=== PATIENT | male | born 1940 | race Caucasian/White ===

== ENCOUNTER 2017-01-12 19:57 | Inpatient (IN) | payer MEDICARE, OTHER ==
[~2017-01-12 19:57] MED LIST: FISH OIL1 CAP; GLUCOSAMINE/CHO1 T; MULTIVITAMIN1 TAB; PRINZIDE 10/12.1 TAB; ZYRTEC1 MG/ML
[2017-01-12] MEDS ORDERED: ASPIRIN EC81 MG PO (20:43)
[2017-01-12] MEDS ORDERED: LASIX20 M1 PO (20:44)
[2017-01-12] MEDS ORDERED: LANTUS SOL100 UNIT/1 SC (20:45)
[2017-01-12] MEDS ORDERED: LOSARTAN-HCTZ1 EAC5 PO (20:47)
[2017-01-12] MEDS ORDERED: NOVOLOG FL100 UNIT/2 (20:48)
[2017-01-12] MEDS ORDERED: SINGULAIR10 M1 PO (20:49)
[2017-01-12] MEDS ORDERED: POTASSIUM CHLO10 ME2 PO (20:49)
[2017-01-12] MEDS ORDERED: GLUCOPHAGE1000 M1 PO (20:49)
[2017-01-12] MEDS ORDERED: PROBIOTIC1 EA10 (20:50)
[2017-01-12] MEDS ORDERED: MULTI-DAY VITA1 EAC1 PO (20:52)
[2017-01-12] MEDS ORDERED: PROBIOTIC1 EA10 PO (20:53)
[2017-01-12] MEDS ORDERED: CITRUCEL POWDE850 GM PO (20:56)
[2017-01-12 23:50] LABS: BASO % 0.3 % (0-2); EOS % 5.3 % (0-7); EOSINOPHIL ABSOLUTE COUNT 0.5 tho/cmm (0.0-0.7); HCT-HEMATOCRIT 36.6 % (36.0-53.5); HGB-HEMOGLOBIN 12.4 gm/dl (13.5-17.0); IMMATURE GRANULOCYTES ABSOLUTE 0.05 tho/cmm (0-0.03); IMMATURE GRANULOCYTES PERCENT 0.5 % (0-0.3); LYMPH % 33.2 % (20-45); LYMPH ABSOLUTE COUNT 3.1 tho/cmm (0.8-4.5); MCH (MEAN CORPUSCULAR HGB) 29.8 pg (28.0-32.0); MCHC MEAN CORPUSCULAR HGB CONC 33.9 % (32.0-36.0); MEAN PLATELET VOLUME 9.2 cmc (9.4-12.4); MONO % 6.5 % (0-12); MONOCYTE ABSOLUTE COUNT 0.6 tho/cmm (0.0-1.2); NEUTROPHIL ABSOLUTE COUNT 5.1 tho/cmm (1.6-8.0); NEUTROPHIL-AUTOMATED 5.1 tho/cmm (1.6-8.0); NEUTROPHILS % 54.2 % (40-80); PLATELET COUNT 273 tho/cmm (150-450); RED BLOOD COUNT 4.16 mil/cmm (4.40-5.70); RED CELL DISTRIBUTION WIDTH 12.6 % (12.4-16.4); WHITE BLOOD COUNT 9.4 tho/cmm (4.0-10.0)
[2017-01-13 00:03] LABS: ANION GAP 15 mmol/L (0-20); BLOOD UREA NITROGEN 25 mg/dl (6-24); CALCIUM 9.1 mg/dl (8.5-10.5); CARBON DIOXIDE-VENOUS 24 mmol/L (22-32); CHLORIDE 99 mmol/l (96-110); CREATININE 1.99 mg/dl (0.60-1.30); GLUCOSE 334 mg/dL (70-110); POTASSIUM 3.4 mmol/L (3.7-5.1); SODIUM 135 mmol/L (135-145); eGFR VALUE FOR BLACK 37 mL/Min
[2017-01-14 06:41] LABS: ANION GAP 12 mmol/L (0-20); BLOOD UREA NITROGEN 21 mg/dl (6-24); CALCIUM 8.7 mg/dl (8.5-10.5); CARBON DIOXIDE-VENOUS 25 mmol/L (22-32); CHLORIDE 106 mmol/l (96-110); CREATININE 1.83 mg/dl (0.60-1.30); GLUCOSE 193 mg/dL (70-110); POTASSIUM 3.9 mmol/L (3.7-5.1); SODIUM 139 mmol/L (135-145); eGFR VALUE FOR BLACK 41 mL/Min
[2017-01-14] MEDS ORDERED: LIPITOR20 M1 PO (11:33)
[2017-01-14] MEDS ORDERED: ASPIRIN325 M3 PO (11:34)
[2017-01-14 12:45] LABS: URINE LEUKOCYTE ESTERASE POSITIVE (NEG); URINE PH 6.5 (5.0-8.0); URINE PROTEIN NEGATIVE (NEG)
[2017-01-14 12:46] LABS: URINE APPEARANCE CLEAR; URINE BILIRUBIN NEGATIVE (NEG); URINE BLOOD NEGATIVE (NEG); URINE COLOR YELLOW; URINE GLUCOSE (UA) MODERATE (NEG); URINE KETONE NEGATIVE (NEG); URINE NITRITE NEGATIVE (NEG)
[2017-01-14 12:54] LABS: URINE RBC 0-2 /[HPF] (0-5)
[2017-01-14] MEDS ORDERED: CIPRO250 M2 PO (14:19)
== END 2017-01-14 15:15 | DRG 69 ==
LOC: 5EB 19:57
PROVIDERS: Family Medicine; Internal Medicine; ADMIT Internal Medicine
DX: G45.9 Transient cerebral ischemic attack, unspecified (principal); E11.22 Type 2 diabetes mellitus with diabetic chronic kidney disease; N18.3 Chronic kidney disease, stage 3 (moderate); R47.01 Aphasia; F09 Unspecified mental disorder due to known physiological condition; I12.9 Hypertensive chronic kidney disease with stage 1 through stage 4 chronic kidney disease, or unspecified chronic kidney disease; Z79.4 Long term (current) use of insulin; E78.5 Hyperlipidemia, unspecified; Z85.51 Personal history of malignant neoplasm of bladder; Z79.82 Long term (current) use of aspirin; N40.0 Benign prostatic hyperplasia without lower urinary tract symptoms; N52.9 Male erectile dysfunction, unspecified; Z88.0 Allergy status to penicillin; Z88.2 Allergy status to sulfonamides; Z88.8 Allergy status to other drugs, medicaments and biological substances; R47.1 Dysarthria and anarthria
CPT/HCPCS: C8929; G8978-GP-CI; G8979-GP-CI; G8980-GP-CI; G9162-GN-CI; G9163-GN-CH; J1650; J1815; J7030